=== PATIENT | female | born 1985 | race Caucasian/White ===

== ENCOUNTER 2016-07-05 11:04 | Emergency (ER) | payer OTHER ==
[~2016-07-05] VITALS: Ht 165.1 cm; Wt 154.6 kg
[~2016-07-05 11:04] MED LIST: AMLO5TAB2 PO; ASPI-973 PO; ASPI81TA3 PO; CEFU500T61 PO; FOLI1TAB18 PO; NYST1POW23 MC; OXYC1TAB24 PO; abdominal binder; prenatal
[2016-07-05 11:35] VITALS: BP 168/109; PULSE 87; RESP 18; O2SAT 99
--- NOTE | 2016-07-05 16:35 | ED.REPORT ---
HPI-Abd Pain F Under 40 Date of Service July 05, 2016 ED Provider: Michael May MD The pt is a 30 y/o female w/ a hx of 3 c-sections (last one 12 weeks ago), frequent UTI's and appendectomy presenting to the ED complaining of abdominal pain and diarrhea onset two weeks ago. She has had liquid diarrhea forcing her to have 10-15 bowel movements a day and attributes the abd pain to bloating. The diarrhea is closely associates with eating or drinking, which has resolved in the last 24 hours since the patient started vomiting. She also has been experiencing non-bloody vomiting since yesterday. She has been unable to keep any food or liquid in. She last vomited at 0800 when she tried to drink an Ensure. She also reports seeing blood on her tissues after having a bowel movement with no gross blood. The pt has tried promethazine, Maalox and a few other OTC meds which has not helped relieve her symptoms. Pt also reports decreased urination which she attributes to dehydration. Pt has no sick contacts. Nursing Notes Stated Complaint: SEVERE ABDOMINAL PAIN Chief Complaint: Female Abdominal Pain Nursing Notes Reviewed: Yes Allergies: Coded Allergies: Sulfa (Sulfonamide Antibiotics) (Verified Allergy, Severe, Anaphylaxis, ) naproxen (Verified Allergy, Severe, Anaphylaxis, 11/22/15) Scheduled Amlodipine (Amlodipine) 5 Mg Tablet 5 MG PO BID Aspirin (Aspirin) 81 Mg Tablet 81 MG PO DAILY Aspirin Chew (Aspirin Chew) 81 Mg Chew 81 MG PO DAILY Cefuroxime Axetil (Cefuroxime) 500 Mg Tablet 500 MG PO BID Folic Acid (Folic Acid) 1 Mg Tablet 4 MG PO DAILY Nystatin (Nystatin) 1 Each Powder.ea. 1 EACH MC BID Scheduled PRN Metoclopramide (Reglan) 10 Mg Tablet 10 MG PO QID PRN PRN For Nausea oxyCODONE-Acetaminophen 5-325 mg (oxyCODONE-Acetaminophen 5-325 mg) 1 Each Tablet 1 TAB PO Q6H PRN PRN For Pain Miscellaneous Medications ([]) General Time Seen by MD: 16:34 Chief Complaint Abdominal pain (due to bloating ) Hx Obtained From: Patient Arrived By: Walk-in Sudden in Onset?: Yes Onset Occurred: More than a week ago... (2 weeks) Symptom Duration: Since onset Location: : Diffuse Quality: Painful Severity: Current: Moderate Associated with: Reports: Diarrhea, Nausea, Vomiting, Denies: Fever Exacerbated by: Eating Recent Healthcare: No recent hospitalization, Recent doctor visit Past Medical History Past Medical History Fibromyalgia Pyelonephritis MTHFR gene mutation, folic insufficiency Frequent UTIs on antibiotics Dizzy spells and fluctuating blood pressure HTN Past Surgical History 3 c-sections Reports: Appendectomy Family History Noncontributory Smoking History Current Every Day Smoker Social History Alcohol Use: Denies alcohol use Drug Use: THC Other Social History: Good social support, Lives with children, Local resident Ambulatory Status Independent Review of Systems Diarrhea Excessive gas Constitutional: Denies: Chills, Fever GI: Reports: Abdominal pain, Nausea, Vomiting Female: Reports: Urination decreased, Denies: Dysuria Complete sys rev & neg: except as marked. Physical Exam Initial Vital Signs Vital Signs (First) Date Time Temp Pulse Resp B/P Pulse Ox O2 Delivery O2 Flow Rate FiO2 07/05/16 11:35 36.8 87 18 168/109 99 07/05/16 17:11 Room Air Initial VS: Reviewed General/Constitutional: Awake, Alert Respiratory / Chest: Atraumatic, Breath sounds NL, Breath sounds = bilat, No rales, No rhonchi, No wheezing Cardiovascular: Heart rate NL (80), Regular rhythm, Heart sounds NL Abdomen: Atraumatic, Soft, Non-tender, McBurney's non-tender, No guarding, No rebound, BS normoactive, No distention Back: Atraumatic, Full range of motion Head / Eyes: Atraumatic, Normocephalic, PERRL Skin: Atraumatic, Warm, Dry Neurologic: Oriented X3, Speech NL Neck: Atraumatic, Supple, Full range of motion Re-Eval/Medical Decision Med Decision/Clinical Course Unfortunately this woman is weighted nearly 6 hours to be seen here in the emergency department. At the time I see her she has had no diarrhea nor vomiting for these past 6 hours. Her heart rate is normal, blood pressure is normal and she appears entirely well. Her abdominal site exam is completely benign. I believe that outpatient follow-up with symptomatically treatment is appropriate. Re-Evaluation/Progress : Time of Eval: 17:00 Re-Evaluation/Progress Note: Pt rechecked. Informed pt of plan for treatment. Pt understands and agrees with plan for treatment. F/U instructions and RTER warnings given. All questions addressed. Counseled Regarding: Diagnosis, Need for follow-up, When/why to return to ED Discharge & Departure Primary Impression: Vomiting Vomiting type: unspecified Vomiting Intractability: unspecified Nausea presence: without nausea Qualified Code: R11.11 - Vomiting without nausea Additional Impressions: Diarrhea Diarrhea type: presumed infectious Qualified Code: A09 - Infectious gastroenteritis and colitis, unspecified Abdominal pain Abdominal location: generalized Qualified Code: R10.84 - Generalized abdominal pain Disposition: Home Discharge Condition All VS Reviewed: Yes Condition: Stable Patient Instructions: Acute Abdominal Pain (ED) Additional Instructions: Do not suspect an immediately dangerous cause for your symptoms today. I believe the Reglan should be helpful in controlling the symptoms of bloating and vomiting. Drink clear liquids for today. Use metoclopramide every 6 hours as needed for nausea/bloating. Use loperamide 1-2 every time you have a loose stool up to 8 pills each day. Follow-up at the clinic tomorrow at [facility] at 10:45 a.m. with the [facility] doctor. Referrals: Marian Llanos MD (PCP) Scribe Attestation Portions of this note were transcribed by Andrews Sanon and Elise Delarosa. I, Dr. May personally performed the history, physical exam and medical decision- making; I reviewed and confirmed the accuracy of the information in the transcribed note. Signed by: Andrews Sanon and Elise Delarosa, Scribanastacia, 07/05/16 and 1472. copies to: Marian Llanos MD, Kirk H MD July 05, 2016 16:35 Andrews Sanon July 05, 2016 16:41 Elise Delarosa July 05, 2016 17:56
[2016-07-05] MEDS ORDERED: METO-301 PO (17:03)
[2016-07-05 17:11] VITALS: BP 132/86; PULSE 82; RESP 16; O2SAT 98
== END 2016-07-05 17:12 | disposition home or self-care (01) ==
LOC: SED 11:04
DX: A09 Infectious gastroenteritis and colitis, unspecified (principal); I10 Essential (primary) hypertension; M79.7 Fibromyalgia; F17.200 Nicotine dependence, unspecified, uncomplicated; Z87.440 Personal history of urinary (tract) infections; Z79.82 Long term (current) use of aspirin; Z88.6 Allergy status to analgesic agent; Z88.2 Allergy status to sulfonamides

== ENCOUNTER 2016-07-07 18:14 | Emergency (ER) | payer OTHER ==
[~2016-07-07] VITALS: Ht 175.3 cm; Wt 154.6 kg
[~2016-07-07 18:14] MED LIST changes: +METO-301 PO
[2016-07-07 18:25] VITALS: PULSE 79; RESP 16; O2SAT 99
[2016-07-07 20:04] LABS: BASOPHILS % (AUTO) 0.4 % (0-3); EOSINOPHILS % (AUTO) 7.9 % (0-5); MONOCYTES % (AUTO) 5.8 % (4-12); Mean Corpuscular Hemoglobin 27.5 pg (27.0-35.0); Mean Corpuscular Volume 84.3 fL (81-100); NEUTROPHILS % (AUTO) 59.3 % (40-74); Platelet Count 261 bil/L (150-400)
--- NOTE | 2016-07-07 20:22 | ED.REPORT ---
HPI-Abd Pain F Under 40 Date of Service July 07, 2016 ED Provider: Marcus Henry MD Patient is a 30 year old female with a history of fibromyalgia, pyelonephritis and hypertension who presents to the ED complaining of abdominal pain. Associated symptoms include decreased appetite, vomiting, weakness and diarrhea for the past three weeks. She denies fever. The patient reports that for the past four days, she gets abdominal pain and vomits after eating. Her last episode of vomiting was yesterday. Patient is currently taking Reglan and Imodium. Nursing Notes Stated Complaint: SEVERE STOMACH CRAMPS,BLOATING,UNABLE TO EAT Chief Complaint: Female Abdominal Pain Nursing Notes Reviewed: Yes Allergies: Coded Allergies: Sulfa (Sulfonamide Antibiotics) (Verified Allergy, Severe, Anaphylaxis, ) naproxen (Verified Allergy, Severe, Anaphylaxis, 11/22/15) Scheduled Amlodipine (Amlodipine) 5 Mg Tablet 5 MG PO BID Aspirin (Aspirin) 81 Mg Tablet 81 MG PO DAILY Aspirin Chew (Aspirin Chew) 81 Mg Chew 81 MG PO DAILY Cefuroxime Axetil (Cefuroxime) 500 Mg Tablet 500 MG PO BID Folic Acid (Folic Acid) 1 Mg Tablet 4 MG PO DAILY Nystatin (Nystatin) 1 Each Powder.ea. 1 EACH MC BID Scheduled PRN Hydrocodone-Acetaminophen 5-325 mg (Hydrocodone-Acetaminophen 5-325 mg) 1 Each Tablet 1 TABLET PO Q4H PRN PRN For Pain Metoclopramide (Reglan) 10 Mg Tablet 10 MG PO QID PRN PRN For Nausea Ondansetron ODT (Zofran ODT) 4 Mg Tablet 4 MG PO Q4H PRN PRN For Nausea oxyCODONE-Acetaminophen 5-325 mg (oxyCODONE-Acetaminophen 5-325 mg) 1 Each Tablet 1 TAB PO Q6H PRN PRN For Pain Miscellaneous Medications ([]) General Time Seen by MD: 20:16 Chief Complaint Abdominal pain Hx Obtained From: Patient Arrived By: Walk-in Sudden in Onset?: No Onset Occurred: More than a week ago... (3 weeks) Symptom Duration: Since onset Location: : Diffuse: Epigastric Associated with: Reports: Diarrhea, Vomiting, Denies: Nausea Recent Healthcare: No recent hospitalization, Recent doctor visit Similar Sx Previous: No Past Medical History Past Medical History Fibromyalgia Pyelonephritis MTHFR gene mutation, folic insufficiency Frequent UTIs on antibiotics Dizzy spells and fluctuating blood pressure HTN Past Surgical History 3 c-sections Reports: Appendectomy Family History Noncontributory Smoking History Current Every Day Smoker Social History Alcohol Use: Denies alcohol use Drug Use: THC Other Social History: Good social support, Lives with children, Local resident Ambulatory Status Independent Review of Systems Constitutional: Reports: Weakness - generalized, Denies: Fever Respiratory: Denies: Non-productive cough, Shortness of breath GI: Reports: Abdominal pain, Diarrhea, Vomiting, Denies: Nausea Complete sys rev & neg: except as marked. Physical Exam Initial Vital Signs Vital Signs (First) Date Time Temp Pulse Resp B/P Pulse Ox O2 Delivery O2 Flow Rate FiO2 07/07/16 18:25 37.2 79 16 99 Room Air 07/07/16 20:41 143/86 Initial VS: Reviewed General/Constitutional: Awake, Alert, No acute distress Respiratory / Chest: Atraumatic, Breath sounds NL, Breath sounds = bilat, No respiratory distress Cardiovascular: Heart rate NL, Regular rhythm, Heart sounds NL Abdomen: Atraumatic Tenderness/Guarding/Rebound: Positive: Tender diffuse, Tender epigastric Back: Atraumatic, Full range of motion Head / Eyes: Atraumatic, Normocephalic, PERRL, EOMI Skin: Atraumatic, Color NL, No rash, Warm, Dry Neurologic: Oriented X3, Speech NL, No motor deficits, No sensory deficits Psychiatric: Affect NL, Mood NL Interpretation & Diagnostics Lab Results Interpretation Result Diagram: 07/07/[id number] Test 07/07/16 19:58 07/07/16 20:30 White Blood Count 10.7th/mm3 (3.8-10.1) Red Blood Count 4.26mil/mm3 (3.90-5.20) Hemoglobin 11.7g/dL (12.0-15.6) Hematocrit 35.9% (35.0-46.0) Mean Corpuscular Volume 84.3fL (81-100) Mean Corpuscular Hemoglobin 27.5pg (27.0-35.0) Mean Corpuscular Hemoglobin Concent 32.6% (32.0-37.0) Red Cell Distribution Width 16.1% (12.3-15.4) Platelet Count 261bil/L (150-400) Neutrophils (%) (Auto) 59.3% (40-74) Lymphocytes (%) (Auto) 26.3% (14-46) Monocytes (%) (Auto) 5.8% (4-12) Eosinophils (%) (Auto) 7.9% (0-5) Basophils (%) (Auto) 0.4% (0-3) Sodium Level 140mEq/L (134-144) Potassium Level 4.4mEq/L (3.5-5.2) Chloride Level 100mEq/L (97-108) Carbon Dioxide Level 26mmol/L (18-29) Blood Urea Nitrogen 13mg/dL (6-20) Creatinine 0.48mg/dL (0.57-1.00) Estimat Glomerular Filtration Rate 216mL/min (>59) Glucose Level 92mg/dL (60-99) Calcium Level 9.8mg/dL (8.5-10.1) Magnesium Level 2.1mg/dL (1.6-2.6) Total Bilirubin 0.5mg/dL (0.0-1.2) Aspartate Amino Transf (AST/SGOT) 28U/L (0-50) Alanine Aminotransferase (ALT/SGPT) 39U/L (0-32) Alkaline Phosphatase 63U/L (25-150) Total Protein 7.5g/dL (6.4-8.4) Albumin 4.2g/dL (3.4-5.0) Lipase 18U/L (13-60) Hold Dinh Top Tube Received (Received) Urine Color Yellow (YELLOW) Urine Appearance Cloudy (CLEAR,HAZY) Urine pH 5.5 (5.0-8.0) Urine Specific [place] 1.032 (1.003-1.035) Urine Protein Negativemg/dL (NEG,TRACE) Urine Glucose (UA) Negativemg/dL (NEGATIVE) Urine Ketones Negativemg/dL (NEGATIVE) Urine Occult Blood Negative (NEGATIVE) Urine Nitrite Negative (NEGATIVE) Urine Bilirubin Negative (NEGATIVE) Urine Urobilinogen Normalmg/dL (NORMAL) Urine Leukocyte Esterase Negative (NEGATIVE) Urine RBC 0-2/hpf (0-2) Urine WBC 0-5/hpf (0-5) Urine Epithelial Cells Occasional/hpf (NONE-MOD) Urine Crystals Amorphous urates (NONE Urine Bacteria None/hpf (NONE-FEW) Urine Hyaline Casts None/lpf (NONE) Urine Granular Casts None seen (NONE SEEN) Urine Waxy Casts None seen (NONE SEEN) Urine Red Blood Cell Casts None seen (NONE SEEN) Urine White Blood Cell Casts None seen (NONE SEEN) Urine Mucus None seen (None Seen) Urine Trichomonas None seen (NONE SEEN) Urine Yeast None (NONE SEEN) Urine Culture Reflexed Not indicated Re-Eval/Medical Decision Med Decision/Clinical Course Med Decision/Clinical Course: 30-year-old female presenting with nausea vomiting and diarrhea 2 weeks. She reports it is intermittent. Her last episode of nausea vomiting was yesterday. Her last episode of diarrhea was earlier today. She has no blood in her stools. Her vomiting is nonbloody nonbilious. Her abdominal exam is quite benign minimal diffuse tenderness. No rebound or guarding. Her pain resolved with Toradol. Her labs are unremarkable. Her vital signs are stable. Her repeat abdominal exam with no tenderness. She was given Zofran and her nausea vomiting resolved. She passed a by mouth challenge. I did not think a CT scan is indicated at this time given normal labs and resolution of pain and benign abdominal exam. Patient requested to go home. I gave her a stool hat that she may bring him back if she has any persistent diarrhea. I gave her prescription for Zofran. She is to follow-up with her primary doctor in 1-2 days or return if any new or worsening abdominal pain, nausea vomiting, any other new or worsening symptoms. Source of Hx: Old records Re-Evaluation/Progress : Time of Eval: 21:38 )( Re-Eval Abdomen: Soft, Non-tender, No guarding, No rebound Patient Status: Mild relief Re-Evaluation/Progress Note: Discussed plan for discharge. The patient understands and agrees to the plan for discharge. All questions were addressed. Counseled Regarding: Diagnosis, Lab results, Need for follow-up, When/why to return to ED Discharge & Departure Primary Impression: Abdominal pain Abdominal location: epigastric Qualified Code: R10.13 - Epigastric pain Disposition: Home Discharge Condition All VS Reviewed: Yes Condition: Stable Patient Instructions: Acute Abdominal Pain (ED), Acute Diarrhea (GEN) Additional Instructions: We are unsure of what is causing your abdominal pain at this time. Your labs looked normal. We gave you a hat to collect a sample of stool in and you can return it to the emergency department. Continue taking Zofran as needed for nausea. Be sure to drink plenty of fluids. Please follow up with your primary care physician next week. Return to the emergency department if you develop any new or worsening symptoms including back pain, diarrhea vomiting, or increased stomach pain. Referrals: Marian Llanos MD (PCP) Yaron Attestation Portions of this note were transcribed by Nieves Parekh. I, Dr. Thi Gabriel personally performed the history, physical exam and medical decision-making; I reviewed and confirmed the accuracy of the information in the transcribed note. Signed by: Yaron Wong, 07/07/16 and 213 copies to: Marian Llanos MD, Ben M MD July 07, 2016 20:22 Ghada Parekh July 07, 2016 20:36
[2016-07-07 20:29] LABS: Magnesium 2.1 mg/dL (1.6-2.6)
[2016-07-07 20:41] VITALS: BP 143/86
[2016-07-07 21:32] LABS: APPEARANCE,URINE CLOUDY (CLEAR,HAZY); COLOR,URINE YELLOW (YELLOW); OCCULT BLOOD,URINE NEGATIVE (NEGATIVE); PH,URINE 5.5 (5.0-8.0); UROBILINOGEN,URINE NORMAL (NORMAL)
[2016-07-07] MEDS ORDERED: LidocaineVisc 2%:Antacid 1:1 10 mL Syringe PO ONE (21:55)
[2016-07-07] MEDS ORDERED: ONDA4TAB9 PO (21:57)
[2016-07-07] MEDS ORDERED: HYDR-4003 PO (21:57)
[2016-07-07 22:33] VITALS: BP 137/82; PULSE 77; RESP 16; O2SAT 99
== END 2016-07-07 22:33 | disposition home or self-care (01) ==
LOC: SED 18:14
DX: R10.13 Epigastric pain (principal); R11.10 Vomiting, unspecified; R19.7 Diarrhea, unspecified; M79.7 Fibromyalgia; I10 Essential (primary) hypertension; F17.200 Nicotine dependence, unspecified, uncomplicated; Z79.82 Long term (current) use of aspirin; Z88.2 Allergy status to sulfonamides; Z88.8 Allergy status to other drugs, medicaments and biological substances
CPT/HCPCS: 36415; 80053; 81000; 81025; 83690; 83735; 85025; 96372; 99284; J1885

== ENCOUNTER 2016-11-19 07:12 | Emergency (ER) | payer OTHER ==
[~2016-11-19] VITALS: Ht 175.3 cm; Wt 159.1 kg
[~2016-11-19 07:12] MED LIST changes: +HYDR-4003 PO; +ONDA4TAB9 PO
[2016-11-19 07:17] VITALS: BP 177/97; PULSE 82; RESP 16; O2SAT 99
--- NOTE | 2016-11-19 07:22 | ED.REPORT ---
HPI-Extremity Problem Lower Date of Service Nov 19, 2016 ED Provider: Marcus Henry MD A 30 year old female with a history of fibromyalgia, UTI, hypertension and pyelonephritis presents to the ED complaining of right foot pain. The pt stepped on a toy four days ago with her right foot, experiencing immediate pain in her foot that has persisted since. The pain has continued to worsen and is now radiating into her ankle. She is unable to bear weight without significant discomfort, and has noticed swelling on the bottom of her foot. The pt has been treating her symptoms with Tylenol and ibuprofen. Nursing Notes Stated Complaint: RT FOOT PAIN EXCRUCIATING TO WALK Chief Complaint: Extremity Trauma Nursing Notes Reviewed: Yes Allergies: Coded Allergies: Sulfa (Sulfonamide Antibiotics) (Verified Allergy, Severe, Anaphylaxis, ) naproxen (Verified Allergy, Severe, Anaphylaxis, 11/19/16) Scheduled PRN Ibuprofen (Ibuprofen) 800 Mg Tablet 800 MG PO TID PRN PRN For Pain General Time Seen by MD: 07:21 Chief Complaint Ankle injury right Hx Obtained From: Patient Arrived By: Walk-in Onset Occurred: 4 days ago Symptom Duration: Since onset Recent Healthcare: Recent doctor visit Similar Sx Previous: No Past Medical History Past Medical History Fibromyalgia Pyelonephritis MTHFR gene mutation, folic insufficiency Frequent UTIs on antibiotics Dizzy spells and fluctuating blood pressure HTN Past Surgical History x3 Reports: Appendectomy Family History Noncontributory Smoking History Current Every Day Smoker Social History Alcohol Use: Denies alcohol use Drug Use: THC Other Social History: Good social support, Lives with children, Local resident Ambulatory Status Independent Review of Systems Review of Systems Note: right foot swelling Musculoskeletal: Reports: Extremity pain, Denies: Back pain, Neck pain Skin: Denies Rash Complete sys rev & neg: except as marked. Respiratory: Denies: Non-productive cough, Shortness of breath Cardiovascular: Denies: Chest pain GI: Denies: Abdominal pain, Nausea, Vomiting Physical Exam Initial Vital Signs Vital Signs (First) Date Time Temp Pulse Resp B/P Pulse Ox O2 Delivery O2 Flow Rate FiO2 11/19/16 07:17 36.5 82 16 177/97 99 Room Air Initial VS: Reviewed Lower Extremity / Pelvis / MS: Atraumatic, Full range of motion Ankle / Foot: Full range of motion, Neurologic intact, Vascular intact diffuse right ankle tenderness no bony tenderness diffuse tenderness below the right lateral malleolus no gross deformity General/Constitutional: Awake, Alert Respiratory / Chest: Atraumatic, Breath sounds NL, Breath sounds = bilat, No respiratory distress Cardiovascular: Heart rate NL, Regular rhythm, Heart sounds NL Skin: Color NL, No rash, Warm, Dry Neurologic: Oriented X3, Speech NL, No motor deficits, No sensory deficits Head / Eyes: Atraumatic, Normocephalic, PERRL, EOMI ENT: Atraumatic, Airway patent, Mucous membranes moist Neck: Atraumatic, Supple, Full range of motion Abdomen: Atraumatic, Soft, Non-tender Back: Atraumatic, Full range of motion Upper Extremity / MS: Atraumatic, Full range of motion Psychiatric: Affect NL, Mood NL Interpretation & Diagnostics X-Ray Interpretation Xray Interpretation: IMPRESSION: The talus is not properly aligned within the ankle mortise. No liss, displaced fracture can be seen. If it would be helpful for clinical management decision making, please consider a dedicated ankle MRI for further evaluation (assuming that there is no contraindication). Dictated by: Veto Nuno M.D. on 11/19/2016 at 8:23 Approved by: Veto Nuno M.D. on 11/19/2016 at 8:25 X-Ray Ordered: Ankle right Interpretation / Wet Read by: Interpret - Radiologist Procedures Splint Application - Fx Mgt Time: 10:09 Procedure Performed by: ED physician, Entry Analyst, Under my direct supervis Precise Anatomic Location: right ankle Type of Immobilization: Posterior short leg Definitive Fracture Care: Splint Post-Procedure / Complications: Cap refill normal, Post splint vascular nl, Post splint neuro nl, Condition improved, Tolerated procedure well, Patient stable Splint Post-Application Eval Splint Post-Application Eval: right ankle Extremity Condition: Cap refill < 2 sec, Distal sensation intact, Distal motor Intact, No compartment syndrome Re-Eval/Medical Decision Med Decision/Clinical Course 30-year-old female presenting after rolling right ankle 4 days ago. She has difficulty bearing weight since then. X-ray no fracture though there is a tibiotalar malalignment. I reviewed with radiology who did not think it was an overt dislocation possibly a ligamentous injury. I discussed with orthopedics who recommended posterior splint and follow-up with podiatry next week. Nonweightbearing. She was discharged splint and prescription for a knee scooter. Nonweightbearing. Return precautions given. Neurovascularly intact status post splint placement. Source of Hx: Old records Re-Evaluation/Progress #1: Time of Eval: 08:38 Re-Evaluation/Progress Note: Pt rechecked, who is feeling better. Radiology results are discussed. Re-Evaluation/Progress #2: Time of Eval: 10:04 Patient Status: Condition improved Re-Evaluation/Progress Note: Pt rechecked and splint is applied. The diagnosis and plan for discharge are discussed. The pt understands and agrees with the plan. All questions are addressed at this time. Consultation : Referral / Consult Name: Silvestre Ashby DO Consulted With: Orthopedic Call Returned at: 10:00 Folder Operator: Agrees with eval, Agrees with plan Note: Spoke with Dr. Ashby, orthopedist, regarding pt's case. Dr. Ashby recommends posterior splint and podiatry follow up. Counseled Regarding: Diagnosis, Lab results, Need for follow-up, When/why to return to ED Discharge & Departure Impression: Primary Impression: Right ankle sprain Encounter type: initial encounter Involved ligament of ankle: unspecified ligament Qualified Code: S93.401A - Sprain of unspecified ligament of right ankle, initial encounter Disposition: Home Discharge Condition All VS Reviewed: Yes Condition: Improved Patient Instructions: Ankle Sprain (GEN), Crutch Instructions (ED) Additional Instructions: Thank you for entrusting us with your care. Your evaluation was reassuring. Wear the posterior splint until you are seen in follow up and do not bear weight until that point. Ice and elevate, and use crutches for additional support. Take Tylenol and ibuprofen as directed for pain. Call your primary care physician to arrange a follow up appointment in the next several days. Also arrange a follow up appointment with podiatry on Tuesday. Return to the emergency department if you develop any new or worsening symptoms such as swelling, redness, increasing pain, fever, nausea or vomiting. Referrals: Marian Llanos MD (PCP) Silvestre Ashby Nathan A DPM Scribe Attestation Portions of this note were transcribed by [place] Streeter. I, Dr. Henry personally performed the history, physical exam and medical decision-making; I reviewed and confirmed the accuracy of the information in the transcribed note. copies to: Silvestre Ashby DO; Marian Llanos MD; Edmundo Dang DPM, Ben M MD Nov 19, 2016 07:[address] Nov 19, 2016 07:33
[2016-11-19] MEDS ORDERED: IBUP800T28 PO (08:08)
--- NOTE | 2016-11-19 08:26 | DRSVH ---
PROCEDURE: X-RAY RIGHT ANKLE, MINIMUM THREE VIEWS ([id number]) INDICATIONS: trauma TECHNIQUE: 3 views of the ankle were acquired. COMPARISON: None. FINDINGS: Bones: No fractures or dislocations. No suspicious bony lesions. The talus is not appropriately al igned within the ankle mortise. The talar dome demonstrates no liss abnormality. A plantar calcanea l spur is seen. Soft tissues: Soft tissue swelling is seen. IMPRESSION: The talus is not properly aligned within the ankle mortise. No liss, displaced fracture can be seen. If it would be helpful for clinical management decision making, please consider a dedicated ankle MRI for further evaluation (assuming that there is no contraindication). Dictated by: Veto Nuno M.D. on 11/19/2016 at 8:23 Approved by: Veto Nuno M.D. on 11/19/2016 at 8:25
[2016-11-19] MEDS ORDERED: HYDROcodone-APAP 5-325 mg Tablet PO ONE (10:30)
[2016-11-19 10:46] VITALS: BP 130/84; PULSE 88; RESP 16; O2SAT 100
== END 2016-11-19 10:47 | disposition home or self-care (01) ==
LOC: SED 07:12
DX: S93.491A Sprain of other ligament of right ankle, initial encounter (principal); W22.8XXA Striking against or struck by other objects, initial encounter; Y93.89 Activity, other specified; Y92.89 Other specified places as the place of occurrence of the external cause; Y99.8 Other external cause status; I10 Essential (primary) hypertension; M79.7 Fibromyalgia; F17.200 Nicotine dependence, unspecified, uncomplicated; Z87.440 Personal history of urinary (tract) infections; Z90.89 Acquired absence of other organs; Z88.2 Allergy status to sulfonamides; Z88.8 Allergy status to other drugs, medicaments and biological substances